=== PATIENT | female | born 1975 | race Two or more races ===

== ENCOUNTER 2021-01-20 15:23 | Outpatient (CLI) | payer OTHER | END 2021-01-20 15:41 | disposition home or self-care (01) | LOC: RAD 15:23 | PROVIDERS: ATTEND Orthopaedic Surgery | DX: M25.561 Pain in right knee (principal); M25.551 Pain in right hip ==

== ENCOUNTER → 2021-06-17 16:52 | Outpatient (CLI) | payer OTHER | END | disposition home or self-care (01) | LOC: RAD 16:52 | PROVIDERS: ATTEND Orthopaedic Surgery | DX: M25.562 Pain in left knee (principal) ==

== ENCOUNTER 2024-07-26 13:25 | Outpatient (CLI) | payer OTHER | END 2024-07-26 13:34 | disposition home or self-care (01) | LOC: RAD 13:25 | PROVIDERS: ATTEND Orthopaedic Surgery | DX: M25.512 Pain in left shoulder (principal) ==

== ENCOUNTER 2025-08-29 10:55 | Outpatient (CLI) | payer OTHER | END 2025-08-29 11:05 | disposition home or self-care (01) | LOC: RAD 10:55 | PROVIDERS: ATTEND Orthopaedic Surgery | DX: M54.2 Cervicalgia (principal) ==